=== PATIENT | female | born 1985 | race Caucasian/White ===

== ENCOUNTER 2023-07-15 19:46 | Observation (INO) | payer OTHER, SELFPAY ==
[2023-07-15 20:04] VITALS: BP 139/84; BMI 29.0
[2023-07-15 20:38] LABS: % Basophils 0.2 % (0-2); % Eosinophils 1.1 % (0-6); % Immature Granulocytes 0.5 % (0-0.5); % Lymphocytes 11.6 % (20.5-51.1); % Monocytes 5.2 % (1.7-9.3); % Neutrophils 81.4 % (42.2-75.2); Absolute Eosinophils 0.2 10^3/uL (0-0.7); Absolute Immature Granulocytes 0.1 10^3/uL (0-0.05); Absolute Lymphocytes 1.7 10^3/uL (1.2-3.4); Absolute Monocytes 0.8 10^3/uL (0.1-0.6); Absolute Neutrophils 11.9 10^3/uL (1.4-6.5); Hematocrit 34.4 % (37.0-47.0); Hemoglobin 11.7 g/dL (12.0-16.0); Mean Corpuscular Hgb 27.3 pg (27.0-31.0); Mean Corpuscular Volume 80.4 fL (81.0-99.0); Mean Platelet Volume 8.7 fL (7.4-10.4); Nucleated Red Blood Cells % 0 %; Platelet Count 270 10^3/uL (130-400); Red Blood Cell Count 4.28 10^6/uL (4.20-5.40); Red Cell Dist. Width 21.3 % (11.5-14.5); White Blood Cell Count 14.6 10^3/uL (4.8-10.8)
[2023-07-15 20:57] LABS: ALT (SGPT) 21 U/L (0-35); AST (SGOT) 22 U/L (14-36); Albumin 3.9 g/dl (3.5-5.0); Alkaline Phosphatase 161 U/L (38-126); Calcium 9.6 mg/dl (8.4-10.2); Carbon Dioxide 20 mmol/L (22-30); Chloride 103 mmol/L (98-107); Estimated Creatinine Clearance > 125 ml/min; Glucose 75 mg/dl (70-99); Potassium 4.2 mmol/L (3.5-5.1); Sodium 134 mmol/L (135-145); Total Bilirubin 0.4 mg/dl (0.2-1.3); Total Protein 7.2 g/dl (6.3-8.2); eGFR > 60.00
[2023-07-15 21:02] LABS: Blood Urea Nitrogen 10 mg/dl (7-17)
[2023-07-15 21:04] LABS: Protein/creatinine Ratio 0.1; Urine Protein 8 mg/dl
== END 2023-07-16 01:18 | disposition home or self-care (01) ==
LOC: LDRP 19:46
PROVIDERS: ADMITTING PHYSICIAN Obstetrics & Gynecology; FAMILY PHYSICIAN Nurse Practitioner Adult Health
DX: O13.3 Gestational [pregnancy-induced] hypertension without significant proteinuria, third trimester (principal); O99.013 Anemia complicating pregnancy, third trimester; D64.9 Anemia, unspecified; M79.89 Other specified soft tissue disorders; Z3A.39 39 weeks gestation of pregnancy; Z88.7 Allergy status to serum and vaccine
CPT/HCPCS: 80053; 82570; 84156; 85025; G0378

== ENCOUNTER 2023-07-22 20:45 | Inpatient (IN) | payer OTHER, SELFPAY ==
[2023-07-22 21:11] VITALS: BMI 29.6
[2023-07-22 21:18] VITALS: BMI 29.6
[2023-07-22 21:20] VITALS: BP 118/73
[2023-07-22] MEDS: CYTOTEC 50 MICROGRAM VAG (22:21)
[2023-07-22 22:50] LABS: % Basophils 0.2 % (0-2); % Eosinophils 0.8 % (0-6); % Immature Granulocytes 0.4 % (0-0.5); % Lymphocytes 12.1 % (20.5-51.1); % Monocytes 5.1 % (1.7-9.3); % Neutrophils 81.4 % (42.2-75.2); Absolute Eosinophils 0.1 10^3/uL (0-0.7); Absolute Immature Granulocytes 0.1 10^3/uL (0-0.05); Absolute Lymphocytes 1.6 10^3/uL (1.2-3.4); Absolute Monocytes 0.7 10^3/uL (0.1-0.6); Absolute Neutrophils 10.9 10^3/uL (1.4-6.5); Hematocrit 34.9 % (37.0-47.0); Hemoglobin 12.1 g/dL (12.0-16.0); Mean Corp Hgb Conc. 34.7 g/dL (33.0-37.0); Mean Corpuscular Hgb 27.8 pg (27.0-31.0); Mean Platelet Volume 9.2 fL (7.4-10.4); Nucleated Red Blood Cells % 0 %; Platelet Count 268 10^3/uL (130-400); Red Blood Cell Count 4.36 10^6/uL (4.20-5.40); Red Cell Dist. Width 20.5 % (11.5-14.5); White Blood Cell Count 13.4 10^3/uL (4.8-10.8)
[2023-07-22 22:51] LABS: Urine Albumin Negative (Neg - Trace); Urine Bilirubin Negative (Negative); Urine Character Clear (Clear); Urine Color Yellow; Urine Glucose Negative (Negative); Urine Ketone Negative (Negative); Urine Leukocyte 2+ (Negative); Urine Nitrite Negative (Negative); Urine Occult Blood 4+ (Negative); Urine Specific Gravity 1.015 (<1.030); Urine Urobilinogen Negative (Neg - 1+)
[2023-07-22 22:58] LABS: Urine Squamous Cell >30 /LPF (Few)
[2023-07-22 23:01] LABS: Urine Bacteria Moderate (Negative)
[2023-07-22 23:04] LABS: ALT (SGPT) 18 U/L (0-35); AST (SGOT) 21 U/L (14-36); Albumin 3.8 g/dl (3.5-5.0); Alkaline Phosphatase 169 U/L (38-126); Blood Urea Nitrogen 8 mg/dl (7-17); Calcium 9.6 mg/dl (8.4-10.2); Carbon Dioxide 20 mmol/L (22-30); Chloride 105 mmol/L (98-107); Estimated Creatinine Clearance > 125 ml/min; Glucose 77 mg/dl (70-99); Potassium 3.9 mmol/L (3.5-5.1); Sodium 132 mmol/L (135-145); Total Bilirubin 0.3 mg/dl (0.2-1.3); Total Protein 6.9 g/dl (6.3-8.2); eGFR > 60.00
[2023-07-22 23:11] LABS: Protein/creatinine Ratio 0.2; Urine Protein 14 mg/dl
[2023-07-23] MEDS: LR 1000 IV ×4 (05:49→19:13)
[2023-07-23] MEDS: BRETHINE 250 MCG SC (09:50)
[2023-07-23] MEDS: PITOCIN 30 UNITS/NSS 500 ML IV (11:33)
[2023-07-24] MEDS: PENICILLIN 110 UNITS IV (00:06)
[2023-07-24] MEDS: LR 1000 IV ×2 (01:53→05:40)
[2023-07-24] MEDS: PENICILLIN 55 UNITS IV ×3 (04:07→11:41)
[2023-07-24] MEDS: FENTANYL/BUPIVACAINE 100 EPIDURAL ×2 (05:14→12:43)
[2023-07-24] MEDS: SUBLIMAZE 100 MCG EPIDURAL (05:14)
[2023-07-24] MEDS: TYLENOL 650 MG PO (19:08)
[2023-07-24] MEDS: MOTRIN 600 MG PO (20:30)
[2023-07-25] MEDS: TYLENOL 650 MG PO ×3 (00:45→16:17)
[2023-07-25] MEDS: MOTRIN 600 MG PO ×3 (04:26→17:50)
[2023-07-25 04:39] LABS: Hematocrit 35.7 % (37.0-47.0); Hemoglobin 11.9 g/dL (12.0-16.0)
[2023-07-25] MEDS: FEOSOL 325 MG PO (07:56)
[2023-07-25] MEDS: SENOKOT-S 1 TABLET PO (22:37)
[2023-07-26] MEDS: TYLENOL 650 MG PO ×2 (00:41→09:16)
[2023-07-26] MEDS: MOTRIN 600 MG PO ×2 (00:41→09:17)
[2023-07-26] MEDS: FEOSOL 325 MG PO (09:16)
[2023-07-27 14:34] LABS: Syphilis/T. pallidum Ab Reflex Negative (Negative)
== END 2023-07-26 14:02 | disposition home or self-care (01) | DRG 807 ==
LOC: LDRP 20:45
PROVIDERS: Obstetrics & Gynecology; ADMITTING PHYSICIAN Obstetrics & Gynecology; FAMILY PHYSICIAN Obstetrics & Gynecology
PROC: 3E0P7VZ Introduction of Hormone into Female Reproductive, Via Natural or Artificial Opening (ICD-10-PCS; 2023-07-22)
PROC: 3E033VJ Introduction of Other Hormone into Peripheral Vein, Percutaneous Approach (ICD-10-PCS; 2023-07-22)
PROC: 3E0DXGC Introduction of Other Therapeutic Substance into Mouth and Pharynx, External Approach (ICD-10-PCS; 2023-07-23)
PROC: 10907ZC Drainage of Amniotic Fluid, Therapeutic from Products of Conception, Via Natural or Artificial Opening (ICD-10-PCS; 2023-07-24)
PROC: 10H07YZ Insertion of Other Device into Products of Conception, Via Natural or Artificial Opening (ICD-10-PCS; 2023-07-24)
PROC: 10E0XZZ Delivery of Products of Conception, External Approach (ICD-10-PCS; 2023-07-24)
PROC: 0KQM0ZZ Repair Perineum Muscle, Open Approach (ICD-10-PCS; 2023-07-24)
DX: O48.0 Post-term pregnancy (principal); Z37.0 Single live birth; Z3A.40 40 weeks gestation of pregnancy; O70.1 Second degree perineal laceration during delivery; O69.81X0 Labor and delivery complicated by cord around neck, without compression, not applicable or unspecified; O99.824 Streptococcus B carrier state complicating childbirth; O99.02 Anemia complicating childbirth; D64.9 Anemia, unspecified; G43.909 Migraine, unspecified, not intractable, without status migrainosus; K58.9 Irritable bowel syndrome, unspecified; O13.4 Gestational [pregnancy-induced] hypertension without significant proteinuria, complicating childbirth; Z79.82 Long term (current) use of aspirin; Z88.7 Allergy status to serum and vaccine
CPT/HCPCS: 88307; 80053; 81003; 81015; 82570; 84156; 85014; 85018; 85025; 86780; 86850; 86900; 86901